=== PATIENT | male | born 1960 | race Caucasian/White ===

== ENCOUNTER 2017-02-25 11:21 | Day surgery (SDC) | payer BC ==
--- NOTE | 2017-02-25 06:45 | History and Physical - [facility] ---
CHIEF COMPLAINT/HISTORY OF CHIEF COMPLAINT: This patient with a history of intractable post lumbar radiculitis had a spinal cord stimulator trial on with 75-85% pain control. Due to the failure of all other therapies and the success of the trial he presents today for implantation of a permanent system. PAST MEDICAL HISTORY: Chronic pain and hypertension. PAST SURGICAL HISTORY: Lumbar spinal surgery. MEDICATIONS ON ADMISSION: List to be provided. ALLERGIES: None. FAMILY/PSYCHOSOCIAL HISTORY: Social history - Positive for smoking and caffeine consumption. Family history - Positive for coronary artery disease, cerebrovascular disease, hypertension, and cancer. SYSTEMS REVIEW: The patient seems appropriate in no acute distress. The remainder of the systems review is is positive for degenerative arthritis. PHYSICAL EXAMINATION: Height is 6' and weight is 170. No vital signs. HEENT: Within normal limits. LUNGS: Clear. HEART: Regular rate and rhythm. ABDOMEN: Nontender. MUSCULOSKELETAL: Examination of the musculoskeletal system shows diffuse tenderness in the lumbar spine adjacent to the laminectomy scar. Range of motion does produce pain moving into the left leg across an outer front and back surface. Motor and sensory field function are somewhat reduced on the left and appropriate on the right. Ambulation - No assistive device utilized. NEUROLOGIC: Cranial nerves are intact. IMPRESSION: 1. POST LUMBAR LAMINECTOMY SYNDROME, ICD-10 CODE M96.1. 2. LUMBAR RADICULITIS, ICD-10 CODE M54.16 AND M54.17. PLAN: The patient is here for implantation of permanent spinal cord stimulator based upon the successful trial and the failure of other therapies. The potential risks, side effects, and complications have all been carefully reviewed including nerve root injury, spinal cord injury, dural puncture, spinal headache and failure of the therapy. He understands and has consented. The procedure will be considered outpatient although an overnight stay will be evaluated. JOB NUMBER: [id number] [facility]
[~2017-02-25 11:21] MED LIST: ACETAMINOPHEN 1,000 MG/100 ML BTL IV ONE; FAMOTIDINE 20MG TABLET PO ONE; MECLIZINE 25 MG TABLET PO ONE; METOCLOPRAMIDE 10 MG TABLET PO ONE; VANCOMYCIN HCL 1,000 MG in DEXTROSE 5 % IN WATER 250 ML IVPB ONE
[2017-02-25] MEDS ORDERED: LIDOCAINE 2% MDV (20MG/ML) 20ML VIAL IV ONE (11:22)
[2017-02-25] MEDS ORDERED: HYDROMORPHONE HCL 2 MG/ML VIAL IV ONE (11:22)
[2017-02-25] MEDS ORDERED: BUPIVACAINE 0.75% W/EPI MPF 30ML VIAL IVP ONE (11:22)
[2017-02-25] MEDS ORDERED: CLINDAMYCIN (PEDIATRIC DOSING) 150 MG/ML VIAL IVPB ONE (11:22)
[2017-02-25] MEDS ORDERED: PROPOFOL 10 MG/ML VIAL IV ONE (11:22)
[2017-02-25] MEDS ORDERED: LIDOCAINE 1% W/EPI 1:200,000 MPF 30ML SQ ONE (11:22)
[2017-02-25] MEDS ORDERED: HYDROCODONE/APAP 7.5/325MG TABLET PO PRN ×2 (15:29)
--- NOTE | 2017-02-26 10:03 | RADIOLOGY REPORT ---
DATE: 02/25/2017. EXAM: CERVICAL SPINE AP. HISTORY: Stimulator placement. TECHNIQUE: A single AP view of the cervical spine was performed. FINDINGS: The stimulator lead tips are at the T6-7 level. IMPRESSION: STIMULATOR LEAD TIPS AT THE T6-7 LEVEL. JOB NUMBER: [id number] [facility]TD[facility]
--- NOTE | 2017-02-28 06:47 | Operative Note - [facility] ---
DATE OF SURGERY: 02/25/2017. PREOPERATIVE DIAGNOSIS: 1. POSTLUMBAR LAMINECTOMY SYNDROME, ICD-10 CODE M96.1. 2. LUMBAR RADICULITIS, ICD-10 CODE M54.16 AND M54.17. POSTOPERATIVE DIAGNOSIS: 1. POSTLUMBAR LAMINECTOMY SYNDROME, ICD-10 CODE M96.1. 2. LUMBAR RADICULITIS, ICD-10 CODE M54.16 AND M54.17. OPERATION: 1. Fluoroscopically guided epidural access, right T12-L1. Placement of spinal cord stimulator lead 1, a [employer] Infinion 16 with 16 electrodes, positioned right T7. 2. Fluoroscopically guided epidural access, right T11-12. Placement of spinal cord stimulator lead 2, a [employer] Infinion 16 with 16 electrodes, positioned left T7. 3. Complex programming of lead 1 for 20 minutes. Complex programming of lead 2 for 20 minutes. 4. Incision, subcutaneous dissection, and anchoring of lead 1 and lead 2 to supraspinous fascia using a [employer] locking anchor. 5. Incision, subcutaneous dissection, and creation of subcutaneous pouch at right posterior gluteal margin for placement of generator identified as a [employer] programmable rechargeable. 6. Tunneling between pouches, placement of external portions of lead 1 and lead 2 into generator pouch, each lead interfaced with the generator. 7. Securing of generator to deep fascia with nonabsorbable suture. Placement of leads into pouch. Closure of both incisions. Vicryl for the fascia and running subcuticular Vicryl for the skin. Dermabond closure. 8. Complex programming of internal generator for home use, two stimulators, recovery room for 20 minutes. SURGEON: Campbell Villasenor D.O. ANESTHESIA: Local sedation. ANESTHESIA PROVIDER: Roberto Gomez CRNA. INDICATION: This patient presents with a history of postlaminectomy radiculitis. Due to the failure of therapy, a spinal cord stimulator trial was conducted with 75 to 85 percent pain control. Due to the failure of all therapy and the success of the trial, he is here for implantation of a permanent system. PROCEDURE: Intravenous line, vital sign monitoring, and intravenous sedation. Prepped and draped with sterile technique. The epidural interspace right of the midline at T12-L1 was infiltrated, and then separate epidural needles were positioned with loss of resistance into the space. At 12-1 spinal cord stimulator lead 1, a [employer] Infinion 16 with 16 electrodes, was positioned right at T7. With the epidural access right of the midline at T11-12 , spinal cord stimulator lead 2, a [employer] Infinion 16 with 16 electrodes, was positioned left of the midline at T7. Complex programming of lead 1 over 20 minutes was followed by complex programming of lead 2 over 20 minutes. This resulted in patterns of stimulation across the back and into the legs. The patient indicated we were in all of the appropriate areas of pain. The skin below below both needles was infiltrated and then an incision was made. Subcutaneous dissection was conducted to the supraspinous fascia. Each of the leads was then anchored to the supraspinous fascia with a [employer] locking anchor. At the right posterior gluteal margin, a site picked by the patient for the generator, the skin was infiltrated. An incision was made and subcutaneous dissection was conducted to form a pouch of suitable size and depth for the generator identified as a [employer] programmable rechargeable. Antibiotic irrigation and Bovie for hemostasis. The generator was then secured to the deep fascia with nonabsorbable suture. The leads and generator were both placed into the pouches. The pouches were then closed with Vicryl for fascia and a running subcuticular Vicryl for the skin. Dermabond closure was used to approximate the edges of the wound. He was transported to the recovery room stable, showing no side effects from the procedure or the sedation. When fully awake and alert, and after monitoring and meeting the appropriate protocol, he will be prepared for discharge. DISCHARGE INSTRUCTIONS: 1. The sites are to remain clean and dry, although he may shower in 24 hours because of the Dermabond. 2. Standard medications to be resumed including Levaquin the antibiotic 500 mg once a day for 14 days. 3. The office is to contact the patient in the next 24 to 48 hours to set up an evaluation in 7 to 10 days to check the incisions. Until then his activity level should stay low. No bend, lift, push, or pull. 4. All other instructions were provided and numbers to contact with problems were given. At that point he was prepared for discharge. JOB NUMBER: [id number] cc: Audra Barger
== END 2017-02-25 16:51 | disposition home or self-care (01) ==
LOC: SUR 11:21 → MEDSURG 15:58 → SUR 16:51
PROVIDERS: ATTEND Pain Medicine Interventional Pain Medicine
DX: M96.1 Postlaminectomy syndrome, not elsewhere classified (principal); M54.16 Radiculopathy, lumbar region; M54.17 Radiculopathy, lumbosacral region; I10 Essential (primary) hypertension; Z72.0 Tobacco use; Z79.01 Long term (current) use of anticoagulants; E78.00 Pure hypercholesterolemia, unspecified; I25.10 Atherosclerotic heart disease of native coronary artery without angina pectoris
CPT/HCPCS: 63685; 63650 ×2; 01936; 72020; J3370; J1170; J3490; 95972; C1820; C1883; J7060